=== PATIENT | female | born 1965 | race Caucasian/White ===

== ENCOUNTER 2016-10-18 18:50 | Emergency (ER) | payer MEDICARE ==
[2016-10-18] MEDS ORDERED: MAG HYDROX/ALUMINUM HYD/SIMETH 30 ML UDC PO ONE (19:36)
[2016-10-18] MEDS ORDERED: SUCRALFATE 1 G/10 ML UDC PO ONE (19:36)
[2016-10-18] MEDS ORDERED: LIDOCAINE HCL 20 ML UDC PO ONE (19:36)
[2016-10-18 19:45] LABS: Hematocrit 45.6 % (37.0-47.0); Hemoglobin 15.6 gm/dL (12.5-16.0); Mean Cell Volume 85.2 fl (78-100); Mean Corpuscular Hemoglobin 29.2 pg (27-31); Mean Corpuscular Hgb Conc 34.2 g/dl (32-36); Neutrophil # 3.3 K/mm3 (1.3-6.0); Neutrophil % 37.4 % (42-75.0); Platelet Count 306 K/mm3 (150-450); Red Blood Count 5.35 M/mm3 (4.2-5.4); Red Cell Distribution Width 12.3 % (11.5-14.0); White Blood Count 8.8 K/mm3 (4.0-10.5)
--- NOTE | 2016-10-18 19:48 | ERNOTE ---
<Michelle Ko - Last Filed: 10/18/16 22:29> Abdominal HPI - Narrative Date of Service: 10/18/16 - General Chief Complaint: Abdominal Pain Time Seen by Provider: 10/18/16 19:33 Source: patient Exam Limitations: no limitations - Immun/Allergies/Home Medications Immunizatons: IMMUNIZATION HX Immunizations Up to Date Yes History of Influenza Vaccine Yes Hx Pneumococcal Vaccination Yes Allergies/Adverse Reactions: Allergies Estrogens Allergy (Verified 10/18/16 19:15) Home Medications: HOME MEDICATIONS ALPRAZolam [Xanax] 0.5 mg PO BID PRN 10/18/16 [Last Taken Unknown] Escitalopram Oxalate [Lexapro] 10 mg PO DAILY 10/18/16 [Last Taken Unknown] HYDROcodone/ACETAMINOPHEN [Hydrocodon-Acetaminophen 5-325] 1 each PO QID [Last Taken Unknown] NIFEdipine [Procardia Xl] 30 mg PO DAILY 10/18/16 [Last Taken Unknown] Phentermine HCl [Adipex-P] 37.5 mg PO DAILY 10/18/16 [Last Taken Unknown] Promethazine HCl [Phenergan] 25 mg PO QID PRN 10/18/16 [Last Taken Unknown] Ranitidine HCl [Zantac] 150 mg PO HS 10/18/16 [Last Taken Unknown] HYDROcodone/ACETAMINOPHEN [[place] 5-325] 1 each PO Q4H PRN #12 tablet 10/19/16 [ Last Taken Unknown] Ondansetron [Zofran Odt] 8 mg PO Q4H PRN #12 tab.rapdis 10/19/16 [Last Taken Unknown] - History of Present Illness Narrative: Pt. comes in with c/o Diffuse abdominal pain and vomiting that is intermittent in nature and radiates to her throat for a month. Pt. denies any SOB, CP, fever , recent illness, alleviating or aggravating factors. Pt.has seen her PCP and was started on Phenergan without relief. Review of Systems - Review of Systems Constitutional: Present: malaise, weight loss. Absent: fever, chills, weakness , fatigue EYE: Present: no symptoms reported. Absent: eye pain, double vision ENT: Present: no symptoms reported. Absent: nose pain, nose congestion, nasal drainage, throat swelling Respiratory: Present: no symptoms reported. Absent: shortness of breath, cough , wheezing Cardiology: Present: no symptoms reported. Absent: chest pain, palpitations, edema Gastrointestinal/Abdominal: Present: nausea, vomiting, abdominal pain, eating less, drinking less. Absent: diarrhea Genitourinary: Present: no symptoms reported. Absent: frequency, decreased urinary output Musculoskeletal: Present: no symptoms reported. Absent: back pain, joint pain Skin: Present: no symptoms reported Neurological: Present: no symptoms reported. Absent: headache, dizziness/light- headedness, numbness, tingling All Other Systems: All systems neg except as marked - Patient's Past Medical History Patient History - Medical: Anxiety, Depression, GERD, Rheumatoid Arthritis, Seizures Patient History - Cardiac/Respiratory: Asthma, COPD, Pneumonia, Sleep Apnea Patient History - Cancer: No Hx of Cancer Patient History - Surgical Procedures: Cholecystectomy, Other Patient History - Other: None - Social History Living Situations: home Abuse History: No History of abuse Psych History: Hx of Anxiety, Hx of Depression Smoking Status: Current every day smoker Patient requests Smoking Cessation Consult: No Initiate information on Smoking Cessation: No Alcohol Use: none Drug Use: none - Immunizations Immunizations Up to Date: Yes Hx Pneumococcal Vaccination: Yes History of Influenza Vaccine: Yes Physical Exam - Physical Exam General Appearance: Present: wd/wn, alert, no apparent distress Eye Exam: Normal inspection: bilateral, PERRL: bilateral, EOMI: bilateral Ears, Nose, Throat: Present: normal ENT inspection, normal pharynx Neck: Present: normal inspection, nontender. Absent: lymphadenopathy (R), lymphadenopathy (L) Respiratory: Present: no respiratory distress, normal breath sounds, no accessory muscle use, chest nontender, lungs clear Cardiovascular/Chest: Present: regular rate, rhythm, no murmur, normal peripheral pulses Gastrointestinal/Abdominal: Present: normal bowel sounds, nondistended, soft, no organomegaly, tenderness - diffuse, other - obese Back Exam: Present: normal inspection, normal range of motion, no CVA tenderness , no vertebral tenderness Extremity Exam: Present: normal inspection, non-tender, normal range of motion, no edema Neurological Exam: Present: alert, oriented, normal mood/affect, no motor/ sensory deficits Skin Exam: Present: warm/dry, pallor. Absent: skin rash ED Progress - Date and Time Seen: Date and Time: 10/18/16 20:42 pain not resolved with GI cocktail. Given positive HCG will perform CT to look for gynocologic CA. - Results and Orders Patient's Lab Results:: I have reviewed the patient's lab results. - Vital Signs Patient's Vital Signs:: I have reviewed the patient's vital signs. Vital Signs: Vital Signs 10/18/16 19:10 Temperature 36.1 C L Pulse Rate 111 H Respiratory 18 Rate Blood Pressure 149/103 O2 Sat by Pulse 97 Oximetry - Progress/Reassessment Chief Complaint: Abdominal Pain Progress:: Unchanged - Transfer of Care Physician Sign Out: Michelle Ko Receiving Physician: Michael Helm Pending Results: CT/MRI results Departure - Departure Clinical Impression: Vomiting Abdominal pain Qualifiers: Abdominal location: generalized Qualified Code(s): R10.84 - Generalized abdominal pain Condition: Stable Additional Instructions: As we discussed, the tests and studies done here in the ER have failed to demonstrate a definitive cause for your symptoms. I do believe that he wear feeling these things, I just do not have a definite reason for them. I have offered to admit her to the hospital but he would have stated he wanted to go home. I think this is a good alternative. Take the prescribed Zofran in the prescribed Lortab to help with pain. No driving while taking Lortab. Call your family doctor, tell them you were seen in the ER, and set up a follow- up appointment as soon as possible. If you develop high fever, increased abdominal pain, vomiting to the point where he can never keep anything down, blood in her emesis or blood in her stool , or anything else new or worrisome you should return to the ER. Referrals: C[place] DO [Primary Care Provider] - Prescriptions: HYDROcodone/ACETAMINOPHEN [[place] 5-325] 1 each PO Q4H PRN #12 tablet PRN Reason: Pain Ondansetron [Zofran Odt] 8 mg PO Q4H PRN #12 tab.rapdis PRN Reason: Nausea <Michael Helm - Last Filed: 10/19/16 00:57> Abdominal HPI - Immun/Allergies/Home Medications Immunizatons: IMMUNIZATION HX Immunizations Up to Date Yes History of Influenza Vaccine Yes Hx Pneumococcal Vaccination Yes ED Progress - Vital Signs Vital Signs: Vital Signs 10/18/16 10/18/1617 19:10 19:46 20:27 Temperature 36.1 C L 36.2 C L 36.0 C L Pulse Rate 111 H 108 H 106 H Respiratory 18 17 16 Rate Blood Pressure 149/103 147/99 142/97 O2 Sat by Pulse 97 98 99 Oximetry 10/18/16 10/18/16 10/18/16 21:09 21:40 22:05 Temperature 36.3 C L Pulse Rate 102 H 99 102 H Respiratory 16 17 18 Rate Blood Pressure 137/92 142/91 132/86 O2 Sat by Pulse 99 99 98 Oximetry 10/18/16 10/18/16 22:35 22:59 Temperature 36.3 C L Pulse Rate 102 H 101 H Respiratory 17 16 Rate Blood Pressure 132/89 137/89 O2 Sat by Pulse 99 98 Oximetry - CT/Ultrasound CT/Ultrasound Narrative: CT of the abdomen pelvis does not show any significant abnormalities. There is a small follicular cyst. There is a small liver cyst. - Progress/Reassessment Progress Note-Subjective: 10/19/16 00:51 The patient continues to have episodes of retching. She is now given been given 2 doses of antiemetics and seems to calm down. I discussed with the patient that we do not have a definite etiology for her symptoms. I have explained to her that we have the option of admitting her to the hospital, but I am not sure what else will be done over the next 2 days, and as it is October 20. Alternatively I offered to allow the patient to go home with pain medicine and nausea medicine she is aware that she needs to call her family doctor and set up an appointment as soon as possible. I made her aware of worrisome symptoms. If any of these occur she will return immediately to the ER. If she is not feeling better or develops anything else concerning she will return as well. I did offer to admit the patient but she strongly desires to go home. I think that this is a safe alternative. I will give her Zahra and Kristina.
--- OUTSIDE RECORDS SUMMARY | 2016-10-18 19:50 | XMS REPORT | Continuity of Care Document ---
:1965 Author Organization [facility] [place] [address] Care Team Providers Name Role Phone [place] Primary Care Provider [phone] Source Comments This disclosure is being made pursuant to the [employer] program and maynot contain all information available regarding this patient.[facility] Active Allergies and Adverse Reactions No Known Allergies Current Medications Be aware that medications may not be up to date as of this document. Alwaysverify current medications with the patient. Prescription Sig. Disp. Refills Start Date End Date Status ALPRAZolam (XANAX) 0.5 MG Take 0.5 mg by 0 11/29/2014 Active tablet mouth 3 (three) times daily. escitalopram (LEXAPRO) 10 Take 10 mg by mouth 0 11/29/2014 Active MG tablet daily. HYDROcodone-acetaminophen 0 01/10/2015 Active (NORCO) 5-325 MG per tablet HYDROcodone-acetaminophen Take 1 tablet by 0 11/29/2014 Active (NORCO) 7.5-325 MG per mouth 4 (four) tablet times daily. meloxicam (MOBIC) 15 MG Take 15 mg by mouth 0 11/29/2014 Active tablet daily. NIFEdipine (PROCARDIA XL) Take 30 mg by mouth 0 11/29/2014 Active 30 MG 24 hr tablet daily. ranitidine (ZANTAC) 150 Take 150 mg by 0 11/29/2014 Active MG tablet mouth nightly. dicyclomine (BENTYL) 20 Take 20 mg by mouth Active MG tablet every 6 (six) hours. tiotropium (SPIRIVA) 18 Place 18 mcg into Active MCG inhalation capsule inhaler and inhale daily. Active Problems Not on file Social History Tobacco Use Types Packs/Day Years Used Date Current Every Day Smoker Cigarettes Tobacco Cessation:Counseling Given: Yes Comments: Alcohol Use Drinks/Week oz/Week Comments No 0 Standard drinks or equivalent 0.0 Last Filed Vital Signs Vital Sign Reading Time Taken Blood Pressure 116/76 01/22/2015 2:49 PM CDT Pulse 84 01/22/2015 2:49 PM CDT Temperature - - Respiratory Rate 20 01/22/2015 2:49 PM CDT Height 1.67 m (5' 5.75") 01/22/2015 2:49 PM CDT Weight 112.129 kg (247 lb 3.2 oz) 01/22/2015 2:49 PM CDT Body Mass Index 40.21 01/22/2015 2:49 PM CDT Oxygen Saturation - - Plan of Care Health Maintenance Due Date Last Done Comments Tetanus/Pertussis (1 - Tdap) 1985 Pap Smear 07/12/1987 Mammogram 2006 Retired-INFLUENZA VACCINE 12/19/2015 Results from Last 3 Months Not on file Insurance Payer Benefit Plan / Group Subscriber ID Type Phone Address MEDICARE MEDICARE A AND B [id number] [phone] [address] [place] [address]
[2016-10-18 19:58] LABS: Albumin * 3.5 gm/dl (3.4-5.0); Anion Gap 11.4 mmol/L (6.8-13.8); Bilirubin, Total 0.7 mg/dL (0.0-1.1); Ca. Corrected For Albumin 10.2 mg/dL (8.4-10.2); Calcium * 10.1 mg/dL (7.9-10.9); Carbon Dioxide 30.3 mmol/L (24-32.6); Potassium 3.7 mmol/L (3.4-4.6); Total Protein 8.4 gm/dL (6.2-8.2)
[2016-10-18] MEDS ORDERED: DIATRIZOATE MEGLU/DIATRIZO SOD 30 ML BTL PO ONE (20:42)
[2016-10-18 20:45] LABS: Urine Appearance Clear; Urine Bilirubin Negative (NEGATIVE); Urine Blood Negative /ul (NEGATIVE); Urine Color Yellow; Urine Ketone Negative (NEGATIVE); Urine Specific Gravity 1.025 SP.GR. (1.005-1.010)
[2016-10-18 20:46] LABS: Urine Bacteria TRACE; Urine Nitrite Negative (NEGATIVE); Urine Protein Negative (NEGATIVE); Urine RBC None Seen /hpf (0-5); Urine Urobilinogen Normal (NORMAL); Urine WBC 0-5 /hpf (0-5)
[2016-10-18] MEDS ORDERED: DIATRIZOATE MEGLU/DIATRIZO SOD 30 ML BTL ONE (20:53)
[2016-10-18] MEDS ORDERED: ONDANSETRON HCL/PF 2 MG/ML VIAL IV ONE (23:33)
[2016-10-18] MEDS ORDERED: ONDANSETRON HCL/PF 2 MG/ML VIAL ONE (23:33)
[2016-10-19] MEDS ORDERED: ONDANSETRON HCL/PF 2 MG/ML VIAL IV ONE (00:20)
[2016-10-19] MEDS ORDERED: ONDANSETRON HCL/PF 2 MG/ML VIAL ONE (00:41)
[2016-10-19 01:31] VITALS: BP 138/91
== END 2016-10-19 01:31 | disposition home or self-care (01) ==
LOC: ER 18:50
DX: R11.10 Vomiting, unspecified (principal); R10.84 Generalized abdominal pain; K21.9 Gastro-esophageal reflux disease without esophagitis; M06.9 Rheumatoid arthritis, unspecified; Z72.0 Tobacco use
CPT/HCPCS: 36415; 74177; 80053; 81001; 82150; 83690; 84703; 85025; 96374; 96375; 99285; J2405